=== PATIENT | female | born 2000 | race Caucasian/White ===

== ENCOUNTER 2023-04-16 00:21 | Emergency (ER) | payer OTHER, SELFPAY ==
[2023-04-16 00:22] VITALS: BP 138/81; PULSE 87; RESP 14; TEMP 36.3; O2SAT 100; BMI 22.8
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
[2023-04-16 01:27] LABS: Anion Gap 12 (5-15); BUN 9 mg/dL (7-18); BUN/Creat Ratio 10.3 RATIO (10-20); Calcium,Total 8.6 mg/dL (8.5-10.1); Chloride 108 mmol/L (98-107); Creatinine, Serum 0.88 mg/dL (0.55-1.02); EST Glomerular Filtration Rate 86 mL/min (>60); Est Glom Filt Rate - Afr Amer 104 mL/min (>60); Estimated Creatinine Clearance 93.87 ml/min; Glucose 111 mg/dL (74-106); Potassium 2.7 mmol/L (3.5-5.1); Sodium Level 140 mmol/L (136-145)
[2023-04-16] MEDS: 0.9% Normal Saline (1000mL) 1,000 ML 999 ML IV (01:41)
[2023-04-16] MEDS: Ondansetron 4 MG/2 ML Vial IV (01:42)
[2023-04-16 02:30] LABS: Amphetamine Urine VISTA NEGATIVE (<1000 ng/mL); Barbiturate Urine VISTA NEGATIVE (< 200 ng/mL); Benzodiazepine Urine VISTA NEGATIVE (< 200 ng/mL); Cocaine Urine VISTA NEGATIVE (< 300 ng/mL); Ecstacy Urine VISTA NEGATIVE (< 500 ng/mL); Methadone Urine VISTA NEGATIVE (< 300 ng/mL); PCP Urine VISTA NEGATIVE (< 25 ng/mL); THC Urine VISTA NEGATIVE (< 50 ng/mL); Vista UDS pH Range 5
[2023-04-16 03:17] VITALS: BP 113/62; BP 113/69; PULSE 80; PULSE 82; RESP 16; O2SAT 95
== END 2023-04-16 03:38 | disposition home or self-care (01) ==
PROVIDERS: Emergency Provider Emergency Medicine; Visit Provider Emergency Medicine
DX: F10.129 Alcohol abuse with intoxication, unspecified (principal); E87.6 Hypokalemia; F41.9 Anxiety disorder, unspecified; Z79.899 Other long term (current) drug therapy; G45.4 Transient global amnesia
CPT/HCPCS: 80048; 80307; 82077; 96361; 96374; 99285; J7030; A4216; J2405